=== PATIENT | male | born 1945 | race Caucasian/White ===

== ENCOUNTER 2016-10-18 16:34 | Emergency (ER) | payer MEDICARE, OTHER ==
[~2016-10-18] VITALS: Wt 97.0 kg
[~2016-10-18 16:34] MED LIST: BENA40TA41 PO; PROP20TA4 PO
[2016-10-18] MEDS ORDERED: SOD CHLORIDE 0.9% 1,000 ML IV STA (17:08)
[2016-10-18 17:30] VITALS: TEMP 100.5
[2016-10-18] MEDS ORDERED: IBUPROFEN 800 MG TAB PO ONE (17:30)
[2016-10-18 17:54] LABS: BASOPHILS % 0.4 % (0.0-2.0); EOSINOPHILS # 0.1 10^3/ul (0.0-0.5); EOSINOPHILS % 1.9 % (0.0-7.0); HEMATOCRIT 49.5 % (42.0-52.0); HEMOGLOBIN 17.1 g/dl (14.0-18.0); LYMPHOCYTES # 1.1 10^3/ul (0.8-2.9); LYMPHOCYTES % 17.3 % (15.0-51.0); MEAN CORPUSCULAR HEMOGLOBIN 31.3 pg (29.0-33.0); MEAN CORPUSCULAR HGB CONC 34.5 g/dl (32.0-37.0); MEAN CORPUSCULAR VOLUME 90.7 fl (82.0-101.0); MEAN PLATELET VOLUME 8.6 fl (7.4-10.4); MONOCYTE # 0.6 10^3/ul (0.3-0.9); MONOCYTES % 10.2 % (0.0-11.0); NEUTROPHIL # 4.5 10^3/ul (1.6-7.5); NEUTROPHILS % 70.2 % (39.0-77.0); PLATELET COUNT 199 10^3/UL (140-440); RED BLOOD COUNT 5.46 10^6/ul (4.70-6.10); RED CELL DISTRIBUTION WIDTH 13.6 % (11.5-14.5); UNCORRECTED WBC 6.4 10^3/ul (4.8-10.8); WHITE BLOOD COUNT 6.4 10^3/ul (4.8-10.8)
[2016-10-18 17:56] LABS: CONDITION 1
[2016-10-18 18:03] LABS: ALBUMIN 3.9 g/dl (3.3-4.9)
[2016-10-18 18:04] LABS: POTASSIUM 4.3 mmol/L (3.5-5.1)
[2016-10-18 18:05] LABS: CREATININE 0.79 mg/dl (0.61-1.24)
[2016-10-18 18:05] LABS: ADD UMIC YES; URINE BILIRUBIN (Dip) NEGATIVE (NEGATIVE); URINE BLOOD (Dip) 2+ (NEGATIVE); URINE GLUCOSE (Dip) NEGATIVE (NEGATIVE); URINE KETONES (Dip) NEGATIVE (NEGATIVE); URINE LEUKOCYTE ESTERASE (Dip) 3+ (NEGATIVE); URINE NITRITE (Dip) POSITIVE (NEGATIVE); URINE TOTAL PROTEIN (Dip) 1+ (NEGATIVE); URINE UROBILINOGEN (Dip) 2.0 E.U./dL (0.1-1.0)
[2016-10-18 18:06] LABS: ALBUMIN/GLOBULIN RATIO 1.18; BILIRUBIN,INDIRECT 0.8 mg/dl (0-1.1); BILIRUBIN,TOTAL 0.8 mg/dl (0.2-1.3); CALCIUM 8.8 mg/dl (8.4-10.2); TOTAL PROTEIN 7.2 g/dl (6.1-8.1)
[2016-10-18 18:26] LABS: URINE COLOR YELLOW (YELLOW)
[2016-10-18 18:29] LABS: BACTERIA,URINE MANY; TRANSITIONAL EPI CELLS,URINE FEW
--- NOTE | 2016-10-18 18:42 | ERD ---
ER Documentation Chief Complaint Date/Time DATE: 10/18/16 TIME: 18:41 Chief Complaint FEVER, ONSET 2 DAYS, NO N/V, NO BLOOD IN URINE HPI This is a 71-year-old male presents to the emergency room for evaluation of a fever. The patient denies any chest pain, cough, shortness of breath, abdominal pain, nausea, vomiting or diarrhea or painful urination. He does state that he had a TURP procedure done approximately 4 days ago at [facility] ROS All systems reviewed and are negative except as per history of present illness. Medications Home Meds Reported Medications Propranolol Hcl* (Propranolol Hcl*) 20 Mg Tablet, 20 MG PO BID, TAB 12/15/14 Benazepril Hcl* (Benazepril Hcl*) 40 Mg Tablet, 40 MG PO DAILY, TAB 12/15/14 Allergies Allergies: Coded Allergies: cephalexin (Unverified Allergy, Unknown, 11/26/15) PMhx/Soc History of Surgery: Yes (TURP) Anesthesia Reaction: No Hx Neurological Disorder: No Hx Respiratory Disorders: Yes (ASTHMA) Hx Cardiac Disorders: Yes (HTN) Hx Psychiatric Problems: No Hx Miscellaneous Medical Probl: Yes (VARICOSE VEINS, DM, THYROID DISEASE) Hx Alcohol Use: No Hx Substance Use: No Hx Tobacco Use: No Smoking Status: Never smoker Physical Exam Vitals Vital Signs Date Time Temp Pulse Resp B/P Pulse Ox O2 Delivery O2 Flow Rate FiO2 10/18/16 17:30 100.5 72 18 143/74 96 Room Air 10/18/16 16:37 101.0 75 18 150/77 94 Physical Exam INITIAL VITAL SIGNS: Reviewed by me GENERAL: The patient is well developed and appropriate for usual state of health in no apparent distress HEENT: Pupils equal, round, and reactive to light. EOMI. There is no scleral icterus. NECK: C-spine is soft and supple, there is no meningismus. There is no cervical lymphadenopathy. LUNGS: Clear to auscultation bilaterally. There are no rales, wheezes or rhonchi. HEART: Regular rate and rhythm, no murmurs, clicks, rubs or gallops. ABDOMEN: Soft, non-tender, non-distended. There are bowel sounds in all four quadrants. No rebound or guarding. EXTREMITIES: There is no peripheral cyanosis or edema. No focal swelling or erythema. NEUROLOGICAL: The patient moves all four extremities with 5/5 strength. Cranial nerves II - XII are intact. Normal gait. Alert and oriented SKIN: There is no apparent rash or petechiae. HEME/LYMPHATIC: There is no evidence of excessive bruising or lymphedema. PSYCHIATRIC: The patient does not appear anxious or depressed. Result Diagram: 10/18/16 1725 10/18/16 1725 Results 24 hrs Laboratory Tests Test 10/18/16 17:25 10/18/16 17:30 Alanine Aminotransferase (ALT/SGPT) 29IU/L Albumin 3.9g/dl Albumin/Globulin Ratio 1.18 Alkaline Phosphatase 69IU/L Anion Gap 14 Aspartate Amino Transf (AST/SGOT) 24IU/L Basophils # 0.010^3/ul Basophils % 0.4% Blood Urea Nitrogen 15mg/dl Calcium Level 8.8mg/dl Carbon Dioxide Level 30mmol/L Chloride Level 100mmol/L Creatinine 0.79mg/dl Direct Bilirubin 0.00mg/dl Eosinophils # 0.110^3/ul Eosinophils % 1.9% Globulin 3.30g/dl Glucose Level 127mg/dl Hematocrit 49.5% Hemoglobin 17.1g/dl Indirect Bilirubin 0.8mg/dl Lipase 61U/L Lymphocytes # 1.110^3/ul Lymphocytes % 17.3% Mean Corpuscular Hemoglobin 31.3pg Mean Corpuscular Hemoglobin Concent 34.5g/dl Mean Corpuscular Volume 90.7fl Mean Platelet Volume 8.6fl Monocytes # 0.610^3/ul Monocytes % 10.2% Neutrophils # 4.510^3/ul Neutrophils % 70.2% Nucleated Red Blood Cells # 0.010^3/ul Nucleated Red Blood Cells % 0.0/100WBC Platelet Count 38157^3/UL Potassium Level 4.3mmol/L Red Blood Count 5.4610^6/ul Red Cell Distribution Width 13.6% Sodium Level 140mmol/L Total Bilirubin 0.8mg/dl Total Protein 7.2g/dl White Blood Count 6.410^3/ul Bedside Glucose 125mg/dL Urine Bacteria MANY Urine Bilirubin NEGATIVE Urine Clarity CLOUDY Urine Color YELLOW Urine Glucose NEGATIVE% Urine Hemoglobin 2+ Urine Ketones NEGATIVE Urine Leukocyte Esterase 3+ Urine Microscopic RBC 5-10/HPF Urine Microscopic WBC >200/HPF Urine Nitrite POSITIVE Urine Specific Dupont 1.010 Urine Total Protein 1+ Urine Transitional Epithelial Cells FEW Urine Urobilinogen 2.0 E.U./dL Urine pH 6.0 Current Medications Medications (Trade) Dose Ordered Sig/Jozef Route PRN Reason Start Time Stop Time Status Last Admin Dose Admin Sodium Chloride (NS) 1,000 ml @ 1,000 mls/hr Q1H STAT IV 10/18/16 17:08 10/18/16 18:07 DC 10/18/16 17:39 Ibuprofen 800 mg 800 mg ONCE ONCE PO 10/18/16 17:30 10/18/16 17:31 DC 10/18/16 17:39 Ciprofloxacin/ Dextrose (Cipro Ivpb) 200 ml @ 200 mls/hr ONCE ONCE IVPB 10/18/16 19:00 10/18/16 19:59 Procedures/MDM This is a 71-year-old male presents to the emergency room for evaluation of fever. When I evaluated him he was febrile, not tachycardic, not hypotensive. He did have lab work drawn including a urinalysis which shows a nitrite positive urinary tract infection. This patient was given ciprofloxacin in the emergency room as he is allergic to cephalosporins. The patient did have a TURP procedure. No signs of sepsis or disseminated infection. He is hemodynamically stable will be discharged home with a prescription for ciprofloxacin. Urine culture was obtained. Departure Diagnosis: Primary Impression: Acute cystitis Additional Impression: Fever Condition: Stable DIVYA MILLAN DO Oct 18, 2016 18:42
[2016-10-18] MEDS ORDERED: CIPR500T4 PO (18:43)
[2016-10-18] MEDS ORDERED: CIPROFLOXACIN 400MG/D5W 200 ML IVPB ONE (19:00)
[2016-10-18 20:15] VITALS: BP 129/75; PULSE 67; RESP 18
== END 2016-10-18 20:28 | disposition home or self-care (01) ==
LOC: E/R 16:34
DX: N30.00 Acute cystitis without hematuria (principal); J45.909 Unspecified asthma, uncomplicated; I10 Essential (primary) hypertension; E11.9 Type 2 diabetes mellitus without complications
CPT/HCPCS: 36415; 80053; 81001; 82962; 83690; 85025; 87086; 87400; 96374; 99284; J0744; J7030; 81003

== ENCOUNTER 2017-01-28 22:42 | Emergency (ER) | payer MEDICARE, OTHER ==
[~2017-01-28] VITALS: Ht 177.8 cm; Wt 96.5 kg
[~2017-01-28 22:42] MED LIST changes: +CIPR500T4 PO
[2017-01-28 22:49] VITALS: Ht 177.8 cm; Wt 96.5 kg
[2017-01-29] MEDS ORDERED: IBUPROFEN 600 MG TAB PO ONE (01:00)
--- NOTE | 2017-01-29 01:08 | ERD ---
ER Documentation Chief Complaint Date/Time DATE: 01/29/17 TIME: 01:03 Chief Complaint Dx with hydrocele on 01/26/17 pt states pain is worse HPI Patient is a 71-year-old male with a past medical history of diabetes and hypertension presents to the emergency department with right-sided testicular pain. Patient reports swelling and redness. Patient was seen at an outside hospital on 01-26-17 and diagnosed with a hydrocele and diverticulosis. Patient does report taking Kenna this morning with no alleviation of symptoms. Patient denies any dysuria, frequency, urgency or hematuria. Patient denies any fevers or chills. Patient denies any abdominal pain. Patient denies any rectal bleeding. Patient denies lifting any heavy objects. Patient requesting to have "surgery at this time to fix his testicles." ROS All systems reviewed and are negative except as per history of present illness. Medications Home Meds Active Scripts Ciprofloxacin Hcl* (Ciprofloxacin Hcl*) 500 Mg Tablet, 500 MG PO BID for 14 Days , TAB Prov:DIVYA MILLAN DO 10/18/16 Reported Medications Propranolol Hcl* (Propranolol Hcl*) 20 Mg Tablet, 20 MG PO BID, TAB 12/15/14 Benazepril Hcl* (Benazepril Hcl*) 40 Mg Tablet, 40 MG PO DAILY, TAB 12/15/14 Allergies Allergies: Coded Allergies: cephalexin (Unverified Allergy, Unknown, 11/26/15) PMhx/Soc History of Surgery: Yes (TURP) Anesthesia Reaction: No Hx Neurological Disorder: No Hx Respiratory Disorders: Yes (ASTHMA) Hx Cardiac Disorders: Yes (HTN) Hx Psychiatric Problems: No Hx Miscellaneous Medical Probl: Yes (VARICOSE VEINS, DM, THYROID DISEASE) Hx Alcohol Use: No Hx Substance Use: No Hx Tobacco Use: No Smoking Status: Never smoker Physical Exam Vitals Vital Signs Date Time Temp Pulse Resp B/P Pulse Ox O2 Delivery O2 Flow Rate FiO2 01/28/17 22:49 98.3 78 18 156/73 94 Physical Exam GENERAL: Well-developed, well-nourished male. Appears in no acute distress. HEAD: Normocephalic, atraumatic. EYES: Pupils are equally reactive bilaterally. EOMs grossly intact. No conjunctival erythema. ENT: Moist mucous membranes. No uvula deviation. No kissing tonsils. NECK: Supple. No meningismus. Normal range of motion of the neck. LUNG: Clear to auscultation bilaterally. No rhonchi, wheezing, rales or coarse breath sounds. HEART: Regular rate and rhythm. No murmurs, rubs or gallops. ABDOMEN:Soft, nontender, and nondistended. Positive bowel sounds in all four quadrants. No rebound tenderness, no guarding. (-) McBurney's point tenderness. No CVA tenderness. BACK: No midline tenderness. EXTREMITIES: Equal pulses bilaterally. No peripheral clubbing, cyanosis or edema. No unilateral leg swelling. NEUROLOGIC: Alert and oriented. Moving all four extremities without any difficulty. Normal speech. Steady gait. SKIN: Normal color. Warm and dry. No rashes or lesions. Results 24 hrs Current Medications Medications (Trade) Dose Ordered Sig/Jozef Route PRN Reason Start Time Stop Time Status Last Admin Dose Admin Ibuprofen (Motrin) 600 mg ONCE ONCE PO 01/29/17 01:00 01/29/17 06:07 DC Procedures/MDM ED COURSE: The patient was stable throughout ED course. I kept the patient and/or family informed of laboratory and diagnostic imaging results throughout the ED course. Patient was advised to change into a patient gown for further examination including testicular exam. Upon my return to the examination room with a male civil technician head mixer, patient was noted to have eloped. I did offer the patient imaging studies as well as pain relief for his symptoms. Patient requested that he have "surgery" to fix his testicular problem. I explained to the patient before making any decision in his care, including emergent surgery, we would need obtain imaging studies as well as a urinalysis. Prior to elopement, patient was stable. Unable to determine cause of patient's testicular pain. Departure Diagnosis: Primary Impression: Pain in testicle Condition: ILANA Bae PA-C Jan 29, 2017 01:08
== END 2017-01-29 01:08 | disposition left against medical advice (07) ==
LOC: FTE 22:42 → E/R 01-29 01:08
DX: N50.811 Right testicular pain (principal); I10 Essential (primary) hypertension; J45.909 Unspecified asthma, uncomplicated; E11.9 Type 2 diabetes mellitus without complications
CPT/HCPCS: 99282